=== PATIENT | female | born 1945 | race Caucasian/White ===

== ENCOUNTER 2020-01-27 07:22 | Day surgery (SDC) | payer MEDICARE, BC ==
[2020-01-27] MEDS ORDERED: fentaNYL 100 MCG/2 ML SDV ONE (08:04)
[2020-01-27] MEDS ORDERED: Propofol 200 MG/20 ML SDV ONE ×2 (08:04→08:43)
[2020-01-27] MEDS ORDERED: Midazolam 1 MG/ML 2 ML SDV ONE (08:04)
[2020-01-27] MEDS ORDERED: Sodium Chloride 0.9% 1,000 ML IV SCH (08:10)
--- NOTE | 2020-01-27 10:36 | OR ---
DATE OF PROCEDURE: 01/27/2020 SURGEON: Shan Gibson MD PROCEDURE: Colonoscopy. FINDINGS: 1. Very tortuous sigmoid colon. 2. Diverticulosis, moderate, mostly densely concentrated in the sigmoid colon without evidence of diverticulitis or bleeding. COMPLICATIONS: None. TIMBER MANAGEMENT ASSISTANT: None. ANESTHESIA: MAC. PREOPERATIVE DIAGNOSIS: Screening colonoscopy. POSTOPERATIVE DIAGNOSIS: Screening colonoscopy. RISKS: Risks, benefits, alternatives, and limitations including, but not limited to infection, bleeding, and perforation were explained to the patient, who wished to proceed. PROCEDURE IN DETAIL: The patient was placed in a left lateral decubitus position. Digital rectal exam was performed without abnormality. Scope was introduced and advanced atraumatically to the ileocecal valve. Scope was brought back through the ascending, transverse, descending colon, and retroflexed. Of note, the sigmoid colon was very tortuous, but at no point was the scope blindly advanced, nor was undue pressure applied. However, this would be a high risk for perforation in future colonoscopies. The diverticulosis would be described as moderate, mostly concentrated within the sigmoid colon itself without any abnormality. No abnormalities on retroflexion. The patient tolerated the procedure well. Shan Gibson MD /[id number]
== END 2020-01-27 10:00 | disposition home or self-care (01) ==
LOC: JP.SDS 07:22
PROVIDERS: ATTEND Surgery
DX: Z12.11 Encounter for screening for malignant neoplasm of colon (principal); K57.30 Diverticulosis of large intestine without perforation or abscess without bleeding; E78.5 Hyperlipidemia, unspecified
CPT/HCPCS: G0121; J2250; J2704; J3010; J7030

== ENCOUNTER 2021-01-22 05:59 | Inpatient (IN) | payer MEDICARE, BC ==
[2021-01-22] MEDS ORDERED: Lactated Ringers 1,000 ML IV SCH (06:30)
[2021-01-22] MEDS ORDERED: Povidone-Iodine 10% Soln 118.25 ML Bottle ONE (06:51)
[2021-01-22] MEDS ORDERED: Nozin Nasal Sanitizer NASBOTH ONE (07:00)
[2021-01-22] MEDS ORDERED: Propofol 200 MG/20 ML SDV ONE ×3 (07:18→09:07)
[2021-01-22] MEDS ORDERED: fentaNYL 100 MCG/2 ML SDV ONE ×2 (07:18→08:42)
[2021-01-22] MEDS ORDERED: Midazolam 1 MG/ML 2 ML SDV ONE ×2 (07:18→08:30)
[2021-01-22] MEDS ORDERED: Tranexamic Acid 1,000 MG in Sodium Chloride 0.9% 500 ML IV PRN (07:30)
[2021-01-22] MEDS ORDERED: cefOXitin 2 GM in Sodium Chloride 0.9% 50 ML IV ONE (07:30)
[2021-01-22] MEDS ORDERED: ceFAZolin 2 GM in Premix Bag 1 BAG IV ONE (07:30)
[2021-01-22] MEDS ORDERED: Tranexamic Acid 720 MG in Sodium Chloride 0.9% 50 ML IV ONE (07:45)
[2021-01-22] MEDS ORDERED: Dexamethasone 4 MG/ML SDV ONE (08:28)
[2021-01-22] MEDS ORDERED: Ondansetron 4 MG/2 ML SDV ONE (08:28)
[2021-01-22] MEDS ORDERED: Acetaminophen 325 MG Tab PO PRN (09:47)
[2021-01-22] MEDS ORDERED: Acetaminophen/HYDROcodone 325-5 MG Tab PO PRN (09:47)
[2021-01-22] MEDS ORDERED: Magnesium Hydroxide 400 MG/5 ML Susp 30 ML Cup PO PRN (09:47)
[2021-01-22] MEDS ORDERED: Fluticasone Propionate Nasal Spray 16 GM Bottle NASBOTH PRN (09:52)
[2021-01-22] MEDS ORDERED: Tranexamic Acid 720 MG in Sodium Chloride 0.9% 50 ML IV PRN (10:00)
[2021-01-22] MEDS ORDERED: Morphine 2 MG/ML SYRINGE IVPUSH PRN (10:14)
[2021-01-22] MEDS: Sodium Chloride 0.9% 1,000 ML IV SCH ×2 (10:53→21:12)
--- NOTE | 2021-01-22 11:13 | CR ---
Knee 1V or 2V Rt CLINICAL HISTORY: TKA FINDINGS: Patient has had recent total knee arthroplasty. Components appear well seated. There is some subcutaneous and in particular air Impression: Status post recent total knee arthroplasty
[2021-01-22] MEDS: Ketorolac 30 MG/ML SDV IVPUSH PRN (11:21)
[2021-01-22] MEDS: Acetaminophen/oxyCODONE 325-5 MG Tab PO PRN ×2 (14:19→19:47)
[2021-01-22] MEDS: ceFAZolin 1 GM in Premix Bag 1 BAG IV SCH ×2 (14:20→21:06)
[2021-01-22] MEDS: Docusate Sodium 100 MG Cap PO SCH (21:05)
[2021-01-22] MEDS: Propranolol 60 MG Cap.ER PO SCH (21:05)
[2021-01-22] MEDS: Nozin Nasal Sanitizer NASBOTH SCH (21:06)
[2021-01-23] MEDS: Acetaminophen/oxyCODONE 325-5 MG Tab PO PRN ×2 (00:11→07:42)
[2021-01-23] MEDS: Ketorolac 30 MG/ML SDV IVPUSH PRN (00:12)
[2021-01-23] MEDS: ceFAZolin 1 GM in Premix Bag 1 BAG IV SCH (05:23)
[2021-01-23] MEDS: Levothyroxine 100 MCG Tab PO SCH (07:25)
[2021-01-23] MEDS: Levothyroxine 25 MCG Tab PO SCH (07:26)
[2021-01-23] MEDS ORDERED: Acetaminophen/oxyCODONE 325-5 MG Tab PO PRN (08:21)
[2021-01-23] MEDS ORDERED: Acetaminophen/HYDROcodone 325-5 MG Tab PO PRN (08:21)
--- NOTE | 2021-01-23 08:37 | PCM.SURGPN ---
- General Info Date of Service: 01/23/21 Date of Surgery/Procedure: 01/22/21 POD#: 1 Post-Op Diagnosis: right knee total arthroplasty Admission Diagnosis/Problem: Knee joint operation Functional Status: Reports: Tolerating Diet. Denies: Pain Controlled - Review of Systems General: Reports: No Symptoms. Denies: Fever, Chills HEENT: Reports: No Symptoms Pulmonary: Reports: No Symptoms Cardiovascular: Reports: No Symptoms Gastrointestinal: Reports: No Symptoms Genitourinary: Reports: No Symptoms Musculoskeletal: Reports: Leg Pain (right ), Joint Pain (right knee ), Joint Swelling (right knee ) Skin: Reports: No Symptoms Neurological: Reports: No Symptoms Psychiatric: Reports: No Symptoms - Patient Data Vitals - Most Recent: Last Vital Signs Temp 98.3 F 01/23/21 07:00 Pulse 65 01/23/21 07:00 Resp 16 01/23/21 07:00 BP 129/82 01/23/21 07:00 Pulse Ox 97 01/23/21 07:00 Weight - Most Recent: 156 lb 11.2 oz I&O - Last 24 Hours: Intake & Output 01/22/21 01/23/21 01/23/21 22:59 06:59 14:59 Intake Total 1779 800 Output Total 600 600 150 Balance 1179 200 -150 Lab Results Last 24 Hrs: Laboratory Results - last 24 hr 01/23/21 Range/Units 04:25 WBC 7.5 (4.5-11.0) K/uL RBC 3.48 (3.30-5.50) M/uL Hgb 11.6 L (12.0-15.0) g/dL Hct 34.6 L (36.0-48.0) % MCV 99 H (80-98) fL MCH 33 H (27-31) pg MCHC 34 (32-36) % Plt Count 143 L (150-400) K/uL Med Orders - Current: Current Medications Acetaminophen (Acetaminophen 325 Mg Tab) 650 mg PO Q4H PRN PRN Reason: Pain/Fever Hydrocodone Bitart/Acetaminophen (Acetaminophen/Hydrocodone 325-5 Mg Tab) 1 - 2 tab PO Q4H PRN PRN Reason: Pain Bandage/Support Products (Nozin Nasal Cotton Stripper) 1 applic NASBOTH BID [place] Stop: 01/28/21 21:01 Last Admin: 01/22/21 21:06 Dose: 1 applic Documented by: Docusate Sodium (Docusate Sodium 100 Mg Cap) 100 mg PO BID [facility] Last Admin: 01/22/21 21:05 Dose: 100 mg Documented by: Enoxaparin Sodium (Enoxaparin 30 Mg/0.3 Ml Syringe) 30 mg SUBCUT DAILY [facility] Fluticasone Propionate (Fluticasone Propionate Nasal [place] 16 Gm Bottle) 0 gm NASBOTH DAILY PRN PRN Reason: Allergies Sodium Chloride (Normal Saline) 1,000 mls @ 75 mls/hr IV ASDIRECTED [facility] Last Admin: 01/22/21 21:12 Dose: 75 mls/hr Documented by: Ketorolac Tromethamine (Ketorolac 30 Mg/Ml Sdv) 15 mg IVPUSH Q8H PRN PRN Reason: Breakthrough Pain Stop: 01/27/21 09:48 Last Admin: 01/23/21 00:12 Dose: 15 mg Documented by: Levothyroxine Sodium (Levothyroxine 100 Mcg Tab) 100 mcg PO ACBREAKFAST [facility] Last Admin: 01/23/21 07:25 Dose: 100 mcg Documented by: Levothyroxine Sodium (Levothyroxine 25 Mcg Tab) 25 mcg PO ACBREAKFAST [facility] Last Admin: 01/23/21 07:26 Dose: 25 mcg Documented by: Magnesium Hydroxide (Magnesium Hydroxide 400 Mg/5 Ml Susp 30 Ml Cup) 30 ml PO BID PRN PRN Reason: Constipation Morphine Sulfate (Morphine 2 Mg/Ml Syringe) 1 mg IVPUSH Q1H PRN PRN Reason: Breakthrough Pain Ondansetron HCl (Ondansetron 4 Mg/2 Ml Sdv) 4 mg IVPUSH Q4H PRN PRN Reason: Nausea/Vomiting Oxycodone/Acetaminophen (Acetaminophen/Oxycodone 325-5 Mg Tab) 1 tab PO Q4H PRN PRN Reason: Pain (severe 7-10) Propranolol HCl (Propranolol 60 Mg Cap.Er) 60 mg PO BEDTIME [facility] Last Admin: 01/22/21 21:05 Dose: 60 mg Documented by: Discontinued Medications Hydrocodone Bitart/Acetaminophen (Acetaminophen/Hydrocodone 325-5 Mg Tab) 1 tab PO Q4H PRN PRN Reason: Pain (mild 1-3) Bandage/Support Products (Nozin Nasal Cotton Stripper) 1 applic NASBOTH ONETIME ONE Stop: 01/22/21 07:01 Last Admin: 01/22/21 07:39 Dose: 3 swab Documented by: Dexamethasone (Dexamethasone 4 Mg/Ml Sdv) Confirm Administered Dose 4 mg .ROUTE .STK-MED ONE Stop: 01/22/21 08:29 Fentanyl (Fentanyl 100 Mcg/2 Ml Sdv) Confirm Administered Dose 100 mcg .ROUTE .STK-MED ONE Stop: 01/22/21 07:19 Fentanyl (Fentanyl 100 Mcg/2 Ml Sdv) Confirm Administered Dose 100 mcg .ROUTE .STK-MED ONE Stop: 01/22/21 08:43 Lactated Ringer's (Ringers, Lactated) 1,000 mls @ 75 mls/hr IV ASDIRECTED [facility] Last Admin: 01/22/21 07:40 Dose: 75 mls/hr Documented by: Cefazolin Sodium/Dextrose 2 gm (/ Premix) 50 mls @ 100 mls/hr IV ONETIME ONE Stop: 01/22/21 07:59 Last Admin: 01/22/21 07:41 Dose: 100 mls/hr Documented by: Tranexamic Acid 720 mg/ Sodium (Chloride) 57.2 mls @ 228.8 mls/hr IV ONETIME ONE Stop: 01/22/21 07:59 Last Admin: 01/22/21 08:20 Dose: 228.8 mls/hr Documented by: Tranexamic Acid 720 mg/ Sodium (Chloride) 57.2 mls @ 228.8 mls/hr IV ONETIME PRN PRN Reason: 2ND DOSE IF REQUESTED BY MD Stop: 01/22/21 14:00 Cefazolin Sodium/Dextrose 1 gm (/ Premix) 50 mls @ 100 mls/hr IV Q8H [facility] Stop: 01/23/21 06:29 Last Admin: 01/23/21 05:23 Dose: 100 mls/hr Documented by: Midazolam HCl (Midazolam 1 Mg/Ml 2 Ml Sdv) Confirm Administered Dose 2 mg .ROUTE .STK-MED ONE Stop: 01/22/21 07:19 Midazolam HCl (Midazolam 1 Mg/Ml 2 Ml Sdv) Confirm Administered Dose 2 mg .ROUTE .STK-MED ONE Stop: 01/22/21 08:31 Ondansetron HCl (Ondansetron 4 Mg/2 Ml Sdv) Confirm Administered Dose 4 mg .ROUTE .STK-MED ONE Stop: 01/22/21 08:29 Oxycodone/Acetaminophen (Acetaminophen/Oxycodone 325-5 Mg Tab) 1 - 2 tab PO Q4H PRN PRN Reason: Pain Last Admin: 01/23/21 07:42 Dose: 1 tab Documented by: Povidone Iodine (Povidone-Iodine 10% Soln 118.25 Ml Bottle) Confirm Administered Dose 1 ml .ROUTE .STK-MED ONE Stop: 01/22/21 06:52 Last Admin: 01/22/21 08:40 Dose: 30 ml Documented by: Propofol (Propofol 200 Mg/20 Ml Sdv) Confirm Administered Dose 200 mg .ROUTE .STK-MED ONE Stop: 01/22/21 07:19 Propofol (Propofol 200 Mg/20 Ml Sdv) Confirm Administered Dose 200 mg .ROUTE .STK-MED ONE Stop: 01/22/21 08:28 Propofol (Propofol 200 Mg/20 Ml Sdv) Confirm Administered Dose 200 mg .ROUTE .STK-MED ONE Stop: 01/22/21 09:08 Propranolol HCl (Propranolol 60 Mg Cap.Er) 60 mg PO DAILY [place] - Exam Wound/Incisions: Healing Well, Dressing Dry and Intact, No Drainage Quality Assessment: Urine Catheter, DVT Prophylaxis General: Alert, Oriented, Cooperative Extremities: Pedal Edema (mild, right ), Joint Swelling (R knee ), Leg Pain (right ), Limited Range of Motion (due to postoperative swelling and pain in R knee ). No: Ivanna's Sign Skin: Dry, Intact, Other (unable to accurately assess temperature, as cool pack on R knee ) Neurological: No New Focal Deficit Psy/Mental Status: Alert, Normal Affect, Normal Mood Sepsis Event Note - Evaluation Sepsis Screening Result: No Definite Risk - Focused Exam Vital Signs: Vital Signs Temp Pulse Resp BP Pulse Ox 01/23/21 07:00 98.3 F 65 16 129/82 97 01/22/21 22:21 98.3 F 67 16 140/76 95 - Problem List & Annotations (1) Status post total right knee replacement SNOMED Code(s): 2974314639086, 2598732610972 Code(s): Z96.651 - PRESENCE OF RIGHT ARTIFICIAL KNEE JOINT Status: Acute Current Visit: Yes (2) Postoperative anemia due to acute blood loss SNOMED Code(s): 90188982607748217 Code(s): D62 - ACUTE POSTHEMORRHAGIC ANEMIA Status: Acute Current Visit: Yes - Problem List Review Problem List Initiated/Reviewed/Updated: Yes - My Orders Last 24 Hours: Active Orders 24 hr Category Date Time Status Patient Status [ADT] Routine ADT 01/22/21 09:47 Active Ambulate [RC] QID Care 01/22/21 09:47 Active Antiembolic Devices [RC] .Routine Care 01/22/21 09:47 Active Head of Bed Elevation [RC] ASDIRECTED Care 01/22/21 09:47 Active Intake and Output [RC] QSHIFT Care 01/22/21 09:47 Active May Shower [RC] ASDIRECTED Care 01/22/21 09:47 Active Neurovascular Check [RC] Q4H Care 01/22/21 09:47 Active Oxygen Therapy [RC] PRN Care 01/22/21 09:47 Active Pneumonia Education [RC] UPON Care 01/22/21 09:47 Active RT Incentive Spirometry [RC] Q1HWA Care 01/22/21 09:47 Active Up to Chair [RC] QID Care 01/22/21 09:47 Active Up to Chair [RC] QID Care 01/22/21 09:47 Active VTE/DVT Education [RC] Click to Edit Care 01/22/21 09:47 Active Vital Signs [RC] PER UNIT ROUTINE Care 01/22/21 09:47 Active Wound Care [RC] Q12H Care 01/22/21 09:47 Active Consult to Case Management/Platform Operations Director [CONS] Cons 01/22/21 09:47 Active Routine OT Evaluation and Treatment [CONS] Routine Cons 01/22/21 09:47 Active PT Evaluation and Treatment [CONS] Routine Cons 01/22/21 09:47 Active Regular Diet [DIET] Diet 01/22/21 Lunch Active Acetaminophen [TylenoL] Med 01/22/21 09:47 Active 650 mg PO Q4H PRN Acetaminophen/HYDROcodone [[place] 325-5 MG] Med 01/23/21 08:21 Ordered 1 - 2 tab PO Q4H PRN Acetaminophen/oxyCODONE [Percocet 325-5 MG] Med 01/23/21 08:21 Ordered 1 tab PO Q4H PRN Docusate Sodium [Colace] Med 01/22/21 21:00 Active 100 mg PO BID Enoxaparin [Lovenox] Med 01/23/21 09:00 Active 30 mg SUBCUT DAILY Fluticasone Propionate [Flonase] Med 01/22/21 09:52 Active 0 gm NASBOTH DAILY PRN Ketorolac [Toradol] Med 01/22/21 09:47 Active 15 mg IVPUSH Q8H PRN Levothyroxine Med 01/23/21 07:30 Active 25 mcg PO ACBREAKFAST Levothyroxine [Synthroid] Med 01/23/21 07:30 Active 100 mcg PO ACBREAKFAST Magnesium Hydroxide [Milk of Magnesia] Med 01/22/21 09:47 Active 30 ml PO BID PRN Morphine Med 01/22/21 10:14 Active 1 mg IVPUSH Q1H PRN Nozin [ Nasal Cotton Stripper] Med 01/22/21 21:00 Active 1 applic NASBOTH BID Ondansetron [Zofran] Med 01/22/21 09:47 Active 4 mg IVPUSH Q4H PRN Propranolol [Inderal LA] Med 01/22/21 21:00 Active 60 mg PO BEDTIME Sodium Chloride 0.9% [Normal Saline] 1,000 ml Med 01/22/21 10:00 Active IV ASDIRECTED Antiembolic Hose [OM.PC] Routine Oth 01/22/21 09:47 Ordered DVT/VTE Prophylaxis Reflex [OM.PC] Routine Oth 01/22/21 09:47 Ordered Ice Therapy [OM.PC] Per Unit Routine Oth 01/22/21 09:47 Ordered Medication Continuation Instructions [OM.PC] Per Unit Oth 01/22/21 09:47 Ordered Routine Oral Care [OM.PC] Routine Oth 01/22/21 09:47 Ordered Sequential Compression Device [OM.PC] Routine Oth 01/22/21 09:47 Ordered Weight bearing status [OM.PC] Routine Oth 01/22/21 09:53 Ordered Resuscitation Status Routine Resus Stat 01/22/21 09:47 Ordered Medication Orders Acetaminophen (Acetaminophen 325 Mg Tab) 650 mg PO Q4H PRN PRN Reason: Pain/Fever Hydrocodone Bitart/Acetaminophen (Acetaminophen/Hydrocodone 325-5 Mg Tab) 1 - 2 tab PO Q4H PRN PRN Reason: Pain Bandage/Support Products (Nozin Nasal Cotton Stripper) 1 applic NASBOTH BID [facility] Stop: 01/28/21 21:01 Last Admin: 01/22/21 21:06 Dose: 1 applic Documented by: NICK Docusate Sodium (Docusate Sodium 100 Mg Cap) 100 mg PO BID [facility] Last Admin: 01/22/21 21:05 Dose: 100 mg Documented by: NICK Enoxaparin Sodium (Enoxaparin 30 Mg/0.3 Ml Syringe) 30 mg SUBCUT DAILY [facility] Fluticasone Propionate (Fluticasone Propionate Nasal [place] 16 Gm Bottle) 0 gm NASBOTH DAILY PRN PRN Reason: Allergies Sodium Chloride (Normal Saline) 1,000 mls @ 75 mls/hr IV ASDIRECTED [facility] Last Admin: 01/22/21 21:12 Dose: 75 mls/hr Documented by: Infusion: 01/22/21 20:01 Dose: 75 mls/hr Documented by: Infusion: 01/22/21 17:11 Dose: 75 mls/hr Documented by: Admin: 01/22/21 10:53 Dose: 125 mls/hr Documented by: LAST Ketorolac Tromethamine (Ketorolac 30 Mg/Ml Sdv) 15 mg IVPUSH Q8H PRN PRN Reason: Breakthrough Pain Stop: 01/27/21 09:48 Last Admin: 01/23/21 00:12 Dose: 15 mg Documented by: Admin: 01/22/21 11:21 Dose: 15 mg Documented by: LAST Levothyroxine Sodium (Levothyroxine 100 Mcg Tab) 100 mcg PO ACBREAKFAST [facility] Last Admin: 01/23/21 07:25 Dose: 100 mcg Documented by: BERT Levothyroxine Sodium (Levothyroxine 25 Mcg Tab) 25 mcg PO ACBREAKFAST [facility] Last Admin: 01/23/21 07:26 Dose: 25 mcg Documented by: BERT Magnesium Hydroxide (Magnesium Hydroxide 400 Mg/5 Ml Susp 30 Ml Cup) 30 ml PO BID PRN PRN Reason: Constipation Morphine Sulfate (Morphine 2 Mg/Ml Syringe) 1 mg IVPUSH Q1H PRN PRN Reason: Breakthrough Pain Ondansetron HCl (Ondansetron 4 Mg/2 Ml Sdv) 4 mg IVPUSH Q4H PRN PRN Reason: Nausea/Vomiting Oxycodone/Acetaminophen (Acetaminophen/Oxycodone 325-5 Mg Tab) 1 tab PO Q4H PRN PRN Reason: Pain (severe 7-10) Propranolol HCl (Propranolol 60 Mg Cap.Er) 60 mg PO BEDTIME [facility] Last Admin: 01/22/21 21:05 Dose: 60 mg Documented by: NICK - Assessment Assessment (Free Text/Narrative):: Patient is a pleasant 75-year-old female, status post right total knee arthroplasty, postop day #1. Patient tolerated surgery well with no major complications. Remains hemodynamically stable, vitals within acceptable limits. Postoperative day #1 hemoglobin at 11.6. Asymptomatic with this; denied lightheadedness, dizziness, dyspnea, nor vision changes. Patient endorsed pain in right knee overnight; has had nausea and lightheadedness that coincides with administration of Percocet. Has been taking Percocet with food. History of nausea and emesis with morphine, so patient has declined morphine for pain. Has been tolerating Toradol well without nausea or lightheadedness and getting adequate pain relief with this. Has been tolerating regular diet well without emesis. Transferred from bed to chair last night without any dizziness or lightheadedness. Endorsed discomfort in RLE with this transfer. Has not ambulated any further than this. Dressing on right lower extremity dry and intact. Unable to accurately assess temperature as cool pack in place on right knee. Edema of R knee and mild pedal edema present. Tibialis posterior appreciated, 2+. Sensation intact to right lower extremity. Dorsiflexion 4/5. Plantar flexion 4/5. Patient requires inpatient status at this time to progress ambulation abilities with physical therapy services. Plan * Patient to participate in physical and occupational therapy daily while in the hospital * May discontinue Moralez, pending ambulation abilities progress with physical therapy this morning * Adjustment made to pain regimen; taper added to [place] dose (see order for details). Will try this instead of Percocet to see if nausea improves. Should take all pain medications with food. Zofran available for nausea as needed * Postoperative anemia stable at this time. Continue to monitor vitals every 4 hours. If patient becomes symptomatic, can recheck CBC * Continue with 30 mg Lovenox subcutaneous daily for chemical DVT/VTE prophylaxis. Bilateral SCDs for mechanical prophylaxis * IV Saline locked this morning, as vitals within normal limits and patient having good oral intake & urine output * Dressing change to be performed on POD#2 by orthopedic provider * Anticipate discharge to home when patient is medically stable and ambulation abilities progress. Patient would like home health referral at time of discharge
[2021-01-23] MEDS ORDERED: Propranolol 60 MG Cap.ER PO SCH (09:00)
[2021-01-23] MEDS: Ondansetron 4 MG/2 ML SDV IVPUSH PRN ×3 (09:09→17:21)
[2021-01-23] MEDS: Sodium Chloride 0.9% 1,000 ML IV SCH (09:13)
[2021-01-23] MEDS: Nozin Nasal Sanitizer NASBOTH SCH ×2 (09:14→20:24)
[2021-01-23] MEDS: Docusate Sodium 100 MG Cap PO SCH ×2 (09:15→20:24)
[2021-01-23] MEDS: Enoxaparin 30 MG/0.3 ML Syringe SUBCUT SCH (09:15)
[2021-01-23] MEDS ORDERED: hydrOXYzine HCL 100 MG/2 ML SDV IM PRN (12:35)
[2021-01-23] MEDS: Ketorolac 30 MG/ML SDV IVPUSH SCH (17:10)
[2021-01-23] MEDS: Propranolol 60 MG Cap.ER PO SCH (20:25)
[2021-01-24] MEDS: Ketorolac 30 MG/ML SDV IVPUSH SCH ×3 (01:24→17:09)
[2021-01-24] MEDS: Levothyroxine 25 MCG Tab PO SCH (07:22)
[2021-01-24] MEDS: Levothyroxine 100 MCG Tab PO SCH (07:22)
[2021-01-24] MEDS: Ondansetron 4 MG/2 ML SDV IVPUSH PRN (07:28)
[2021-01-24] MEDS: Docusate Sodium 100 MG Cap PO SCH ×2 (09:52→20:41)
[2021-01-24] MEDS: Enoxaparin 30 MG/0.3 ML Syringe SUBCUT SCH (09:53)
[2021-01-24] MEDS: Nozin Nasal Sanitizer NASBOTH SCH ×2 (09:53→20:41)
--- NOTE | 2021-01-24 15:06 | PCM.SURGPN ---
- General Info Date of Service: 01/24/21 Date of Surgery/Procedure: 01/22/21 POD#: 2 Post-Op Diagnosis: right knee osteoarthritis Admission Diagnosis/Problem: Knee joint operation Functional Status: Reports: Ambulating (with FWW, SBA ), Urinating. Denies: Tolerating Diet - Review of Systems General: Reports: Fatigue, Other. Denies: Fever, Chills, Appetite HEENT: Denies: Visual Changes Pulmonary: Reports: No Symptoms Cardiovascular: Reports: No Symptoms Gastrointestinal: Reports: Decreased Appetite, Nausea, Vomiting Genitourinary: Reports: No Symptoms Musculoskeletal: Reports: Back Pain (chronic ), Leg Pain (right ), Joint Pain (right knee ), Joint Swelling (right knee ) Skin: Reports: Bruising Neurological: Reports: No Symptoms Psychiatric: Reports: No Symptoms - Patient Data Vitals - Most Recent: Last Vital Signs Temp 97.5 F 01/24/21 14:33 Pulse 76 01/24/21 14:33 Resp 16 01/24/21 14:33 BP 153/72 H 01/24/21 14:33 Pulse Ox 95 01/24/21 14:33 Weight - Most Recent: 156 lb 11.203 oz I&O - Last 24 Hours: Intake & Output 01/23/21 01/24/21 01/24/21 22:59 06:59 14:59 Intake Total 2504 1455 400 Output Total 500 2050 800 Balance 2004 -595 -400 Med Orders - Current: Current Medications Acetaminophen (Acetaminophen 325 Mg Tab) 650 mg PO Q4H PRN PRN Reason: Pain/Fever Hydrocodone Bitart/Acetaminophen (Acetaminophen/Hydrocodone 325-5 Mg Tab) 1 - 2 tab PO Q4H PRN PRN Reason: Pain Last Admin: 01/23/21 12:52 Dose: 1 tab Documented by: Bandage/Support Products (Nozin Nasal [place]) 1 applic NASBOTH BID [facility] Stop: 01/28/21 21:01 Last Admin: 01/24/21 09:53 Dose: 1 applic Documented by: Docusate Sodium (Docusate Sodium 100 Mg Cap) 100 mg PO BID [facility] Last Admin: 01/24/21 09:52 Dose: 100 mg Documented by: Enoxaparin Sodium (Enoxaparin 30 Mg/0.3 Ml Syringe) 30 mg SUBCUT DAILY [facility] Last Admin: 01/24/21 09:53 Dose: 30 mg Documented by: Fluticasone Propionate (Fluticasone Propionate Nasal [place] 16 Gm Bottle) 0 gm NASBOTH DAILY PRN PRN Reason: Allergies Hydroxyzine HCl (Hydroxyzine Hcl 100 Mg/2 Ml Sdv) 100 mg IM Q6H PRN PRN Reason: Breakthrough Pain Sodium Chloride (Normal Saline) 1,000 mls @ 75 mls/hr IV ASDIRECTED [facility] Last Admin: 01/23/21 09:13 Dose: 75 mls/hr Documented by: Ketorolac Tromethamine (Ketorolac 30 Mg/Ml Sdv) 15 mg IVPUSH Q8H [facility] Stop: 01/24/21 17:01 Last Admin: 01/24/21 09:53 Dose: 15 mg Documented by: Levothyroxine Sodium (Levothyroxine 100 Mcg Tab) 100 mcg PO ACBREAKFAST [facility] Last Admin: 01/24/21 07:22 Dose: 100 mcg Documented by: Levothyroxine Sodium (Levothyroxine 25 Mcg Tab) 25 mcg PO ACBREAKFAST [facility] Last Admin: 01/24/21 07:22 Dose: 25 mcg Documented by: Magnesium Hydroxide (Magnesium Hydroxide 400 Mg/5 Ml Susp 30 Ml Cup) 30 ml PO BID PRN PRN Reason: Constipation Ondansetron HCl (Ondansetron 4 Mg/2 Ml Sdv) 4 mg IVPUSH Q4H PRN PRN Reason: Nausea/Vomiting Last Admin: 01/24/21 07:28 Dose: 4 mg Documented by: Oxycodone/Acetaminophen (Acetaminophen/Oxycodone 325-5 Mg Tab) 1 tab PO Q4H PRN PRN Reason: Pain (severe 7-10) Propranolol HCl (Propranolol 60 Mg Cap.Er) 60 mg PO BEDTIME [facility] Last Admin: 01/23/21 20:25 Dose: 60 mg Documented by: Discontinued Medications Hydrocodone Bitart/Acetaminophen (Acetaminophen/Hydrocodone 325-5 Mg Tab) 1 tab PO Q4H PRN PRN Reason: Pain (mild 1-3) Bandage/Support Products (Nozin Nasal [place]) 1 applic NASBOTH ONETIME ONE Stop: 01/22/21 07:01 Last Admin: 01/22/21 07:39 Dose: 3 swab Documented by: Dexamethasone (Dexamethasone 4 Mg/Ml Sdv) Confirm Administered Dose 4 mg .ROUTE .STK-MED ONE Stop: 01/22/21 08:29 Fentanyl (Fentanyl 100 Mcg/2 Ml Sdv) Confirm Administered Dose 100 mcg .ROUTE .STK-MED ONE Stop: 01/22/21 07:19 Fentanyl (Fentanyl 100 Mcg/2 Ml Sdv) Confirm Administered Dose 100 mcg .ROUTE .STK-MED ONE Stop: 01/22/21 08:43 Lactated Ringer's (Ringers, Lactated) 1,000 mls @ 75 mls/hr IV ASDIRECTED [facility] Last Admin: 01/22/21 07:40 Dose: 75 mls/hr Documented by: Cefazolin Sodium/Dextrose 2 gm (/ Premix) 50 mls @ 100 mls/hr IV ONETIME ONE Stop: 01/22/21 07:59 Last Admin: 01/22/21 07:41 Dose: 100 mls/hr Documented by: Tranexamic Acid 720 mg/ Sodium (Chloride) 57.2 mls @ 228.8 mls/hr IV ONETIME ONE Stop: 01/22/21 07:59 Last Admin: 01/22/21 08:20 Dose: 228.8 mls/hr Documented by: Tranexamic Acid 720 mg/ Sodium (Chloride) 57.2 mls @ 228.8 mls/hr IV ONETIME PRN PRN Reason: 2ND DOSE IF REQUESTED BY MD Stop: 01/22/21 14:00 Cefazolin Sodium/Dextrose 1 gm (/ Premix) 50 mls @ 100 mls/hr IV Q8H [facility] Stop: 01/23/21 06:29 Last Admin: 01/23/21 05:23 Dose: 100 mls/hr Documented by: Ketorolac Tromethamine (Ketorolac 30 Mg/Ml Sdv) 15 mg IVPUSH Q8H PRN PRN Reason: Breakthrough Pain Stop: 01/27/21 09:48 Last Admin: 01/23/21 00:12 Dose: 15 mg Documented by: Midazolam HCl (Midazolam 1 Mg/Ml 2 Ml Sdv) Confirm Administered Dose 2 mg .ROUTE .STK-MED ONE Stop: 01/22/21 07:19 Midazolam HCl (Midazolam 1 Mg/Ml 2 Ml Sdv) Confirm Administered Dose 2 mg .ROUTE .STK-MED ONE Stop: 01/22/21 08:31 Ondansetron HCl (Ondansetron 4 Mg/2 Ml Sdv) Confirm Administered Dose 4 mg .ROUTE .STK-MED ONE Stop: 01/22/21 08:29 Oxycodone/Acetaminophen (Acetaminophen/Oxycodone 325-5 Mg Tab) 1 - 2 tab PO Q4H PRN PRN Reason: Pain Last Admin: 01/23/21 07:42 Dose: 1 tab Documented by: Povidone Iodine (Povidone-Iodine 10% Soln 118.25 Ml Bottle) Confirm Administered Dose 1 ml .ROUTE .STK-MED ONE Stop: 01/22/21 06:52 Last Admin: 01/22/21 08:40 Dose: 30 ml Documented by: Propofol (Propofol 200 Mg/20 Ml Sdv) Confirm Administered Dose 200 mg .ROUTE .STK-MED ONE Stop: 01/22/21 07:19 Propofol (Propofol 200 Mg/20 Ml Sdv) Confirm Administered Dose 200 mg .ROUTE .STK-MED ONE Stop: 01/22/21 08:28 Propofol (Propofol 200 Mg/20 Ml Sdv) Confirm Administered Dose 200 mg .ROUTE .STK-MED ONE Stop: 01/22/21 09:08 Propranolol HCl (Propranolol 60 Mg Cap.Er) 60 mg PO DAILY [place] - Exam Wound/Incisions: Healing Well, Dressing Dry and Intact, No Drainage Quality Assessment: DVT Prophylaxis General: Alert, Oriented, Cooperative, No Acute Distress Extremities: Pedal Edema, Joint Swelling (right knee ), Leg Pain (right ), Limited Range of Motion (due to postoperative swelling and pain, knee flexion to 84 ). No: Ivanna's Sign Skin: Dry, Intact, Ecchymosis Neurological: No New Focal Deficit Psy/Mental Status: Alert, Normal Affect, Normal Mood Sepsis Event Note - Evaluation Sepsis Screening Result: No Definite Risk - Focused Exam Vital Signs: Vital Signs Temp Pulse Resp BP Pulse Ox 01/24/21 14:33 97.5 F 76 16 153/72 H 95 01/24/21 11:00 97.5 F 56 L 16 139/76 97 01/24/21 06:52 98.3 F 68 16 147/67 H 91 L - Problem List & Annotations (1) Status post total right knee replacement SNOMED Code(s): 5796979259576, 8202729379024 Code(s): Z96.651 - PRESENCE OF RIGHT ARTIFICIAL KNEE JOINT Status: Acute Current Visit: Yes (2) Postoperative anemia due to acute blood loss SNOMED Code(s): 40074904966589256 Code(s): D62 - ACUTE POSTHEMORRHAGIC ANEMIA Status: Acute Current Visit: Yes (3) Nausea and vomiting after administration of anesthetic agent SNOMED Code(s): 356073782 Code(s): T88.59XA - OTHER COMPLICATIONS OF ANESTHESIA, INITIAL ENCOUNTER; R11.2 - NAUSEA WITH VOMITING, UNSPECIFIED Status: Acute Current Visit: Yes Annotation/Comment:: with Percocet and [place] - Problem List Review Problem List Initiated/Reviewed/Updated: Yes - My Orders Last 24 Hours: Active Orders 24 hr Category Date Time Status Communication Order [RC] ASDIRECTED Care 01/24/21 05:00 Active Ketorolac [Toradol] Med 01/23/21 17:00 Active 15 mg IVPUSH Q8H Medication Orders Acetaminophen (Acetaminophen 325 Mg Tab) 650 mg PO Q4H PRN PRN Reason: Pain/Fever Hydrocodone Bitart/Acetaminophen (Acetaminophen/Hydrocodone 325-5 Mg Tab) 1 - 2 tab PO Q4H PRN PRN Reason: Pain Last Admin: 01/23/21 12:52 Dose: 1 tab Documented by: BERT Bandage/Support Products (Nozin Nasal [place]) 1 applic NASBOTH BID [facility] Stop: 01/28/21 21:01 Last Admin: 01/24/21 09:53 Dose: 1 applic Documented by: Admin: 01/23/21 20:24 Dose: 1 applic Documented by: Admin: 01/23/21 09:14 Dose: 1 applic Documented by: Admin: 01/22/21 21:06 Dose: 1 applic Documented by: NICK Docusate Sodium (Docusate Sodium 100 Mg Cap) 100 mg PO BID [facility] Last Admin: 01/24/21 09:52 Dose: 100 mg Documented by: Admin: 01/23/21 20:24 Dose: 100 mg Documented by: Admin: 01/23/21 09:15 Dose: 100 mg Documented by: Admin: 01/22/21 21:05 Dose: 100 mg Documented by: NICK Enoxaparin Sodium (Enoxaparin 30 Mg/0.3 Ml Syringe) 30 mg SUBCUT DAILY [facility] Last Admin: 01/24/21 09:53 Dose: 30 mg Documented by: Admin: 01/23/21 09:15 Dose: 30 mg Documented by: BERT Fluticasone Propionate (Fluticasone Propionate Nasal [place] 16 Gm Bottle) 0 gm NASBOTH DAILY PRN PRN Reason: Allergies Hydroxyzine HCl (Hydroxyzine Hcl 100 Mg/2 Ml Sdv) 100 mg IM Q6H PRN PRN Reason: Breakthrough Pain Sodium Chloride (Normal Saline) 1,000 mls @ 75 mls/hr IV ASDIRECTED [facility] Last Admin: 01/23/21 09:13 Dose: 75 mls/hr Documented by: Infusion: 01/23/21 09:13 Dose: 75 mls/hr Documented by: Admin: 01/22/21 21:12 Dose: 75 mls/hr Documented by: Infusion: 01/22/21 20:01 Dose: 75 mls/hr Documented by: Infusion: 01/22/21 17:11 Dose: 75 mls/hr Documented by: Admin: 01/22/21 10:53 Dose: 125 mls/hr Documented by: LAST Ketorolac Tromethamine (Ketorolac 30 Mg/Ml Sdv) 15 mg IVPUSH Q8H [facility] Stop: 01/24/21 17:01 Last Admin: 01/24/21 09:53 Dose: 15 mg Documented by: Admin: 01/24/21 01:24 Dose: 15 mg Documented by: Admin: 01/23/21 17:10 Dose: 15 mg Documented by: BERT Levothyroxine Sodium (Levothyroxine 100 Mcg Tab) 100 mcg PO ACBREAKFAST [facility] Last Admin: 01/24/21 07:22 Dose: 100 mcg Documented by: Admin: 01/23/21 07:25 Dose: 100 mcg Documented by: BERT Levothyroxine Sodium (Levothyroxine 25 Mcg Tab) 25 mcg PO ACBREAKFAST [facility] Last Admin: 01/24/21 07:22 Dose: 25 mcg Documented by: Admin: 01/23/21 07:26 Dose: 25 mcg Documented by: BERT Magnesium Hydroxide (Magnesium Hydroxide 400 Mg/5 Ml Susp 30 Ml Cup) 30 ml PO BID PRN PRN Reason: Constipation Ondansetron HCl (Ondansetron 4 Mg/2 Ml Sdv) 4 mg IVPUSH Q4H PRN PRN Reason: Nausea/Vomiting Last Admin: 01/24/21 07:28 Dose: 4 mg Documented by: Admin: 01/23/21 17:21 Dose: 4 mg Documented by: Admin: 01/23/21 12:52 Dose: 4 mg Documented by: Admin: 01/23/21 09:09 Dose: 4 mg Documented by: BERT Oxycodone/Acetaminophen (Acetaminophen/Oxycodone 325-5 Mg Tab) 1 tab PO Q4H PRN PRN Reason: Pain (severe 7-10) Propranolol HCl (Propranolol 60 Mg Cap.Er) 60 mg PO BEDTIME [facility] Last Admin: 01/23/21 20:25 Dose: 60 mg Documented by: Admin: 01/22/21 21:05 Dose: 60 mg Documented by: NICK - Assessment Assessment (Free Text/Narrative):: Patient is a pleasant 75-year-old female, status post right total knee arthroplasty, postop day #2. No acute events overnight. Patient remains hemodynamically stable; vitals within acceptable limits. Adjustments to pain regimen made last night, scheduled Toradol ordered. Patient seems to tolerate this better without emesis in comparison to previous pain medications. Patient does still endorse nausea and decreased appetite; has been able to tolerate Jello and some soup broth without emesis. Denied fever, chills, dyspnea, nor vision changes. Pain seems to be relatively well controlled with Toradol at this time. Hydroxyzine is available as well for pain/nausea; patient has not tried this medication yet, so unsure how effective this medication will be. Patient has worked with physical therapy daily while in the hospital; ambulation abilities progressed to 162 feet with four-wheel walker and standby assist, flexion to 78 degrees of right knee, and safely completed 2 stairs today. Patient does have 8 stairs to complete to get into her home upon discharge. Patient worked with occupational therapy today; was introduced to adaptive equipment to help with ADLs. Demonstrated competency using right leg junior systems administrator for assistance to get right lower extremity into and out of bed. Completed ADLs with minimal assistance. Due to the severe nausea with movement yesterday [place] catheter was left in overnight and removed this morning on postop day #2. IV saline locked on postop day #2 as patient's oral intake increased. Dressing change performed by orthopedic providers on postop day #2. Patient continues to require inpatient status at this time for monitoring of postoperative nausea and inadequate pain control with oral medications. Additionally, requires physical therapy services to progress ambulation and stair abilities prior to discharge. Exam: Incision approximated, Steri-Strips with dried drainage intact above incision. No surrounding erythema of incision. No active drainage. Postoperative edema of right knee and pedal edema present. R calf soft and supple. Tibialis posterior appreciated, 2+. Sensation to right lower extremity intact. Plan: * Patient to participate in physical and occupational therapy daily while in hospital * Pain control: Continue with scheduled Toradol. May utilize hydroxyzine for breakthrough pain and nausea * DVT prophylaxis: Continue with 30 mg subcutaneous Lovenox daily for chemical prophylaxis and bilateral lower extremity SCDs for mechanical prophylaxis * Anticipate discharge to home when patient is medically stable, nausea under control, pain is controlled with PO medications. Referral has been made for home health services upon discharge.
[2021-01-24] MEDS: Propranolol 60 MG Cap.ER PO SCH (20:42)
[2021-01-25] MEDS: Levothyroxine 100 MCG Tab PO SCH (07:21)
[2021-01-25] MEDS: Levothyroxine 25 MCG Tab PO SCH (07:21)
[2021-01-25] MEDS: Nozin Nasal Sanitizer NASBOTH SCH (08:18)
[2021-01-25] MEDS: Docusate Sodium 100 MG Cap PO SCH (08:18)
[2021-01-25] MEDS: Enoxaparin 30 MG/0.3 ML Syringe SUBCUT SCH (08:18)
--- NOTE | 2021-01-25 12:16 | PCM.DCSUM1 ---
Discharge Summary - Hospital Course HPI Initial Comments: Patient is a 75-year-old female, history of right knee pain. Knee pain was limiting functional mobility and quality of life. Symptoms were refractory to conservative management and patient elected to undergo right total knee arthroplasty. Surgery went well with no complications. Postoperative period was complicated by nausea with analgesic measures. Hospital stay prolonged to allow for additional physical therapy services and for adequate pain control with resolution of nausea. Diagnosis: Stroke: No Modified Person Scale: No Symptoms at All Modified Person Scale Score: 0 - Discharge Data Discharge Date: 01/25/21 Discharge Disposition: Home, W Home Health Agency 06 Condition: Good - Referral to Home Health Date of Face to Face Encounter: 01/25/21 Reason for Homebound Status: motivated to go home, fairly independent with ADLs. Primary Care Physician: Nasra Swanson MD Skilled Need: post-operative vital monitoring, physical therapy - Discharge Diagnosis/Problem(s) (1) Status post total right knee replacement SNOMED Code(s): 2368367965028, [id number] ICD Code: Z96.651 - PRESENCE OF RIGHT ARTIFICIAL KNEE JOINT Status: Acute Current Visit: Yes (2) Postoperative anemia due to acute blood loss SNOMED Code(s): 82434541603060568 ICD Code: D62 - ACUTE POSTHEMORRHAGIC ANEMIA Status: Acute Current Visit: Yes (3) Nausea and vomiting after administration of anesthetic agent SNOMED Code(s): 500975595 ICD Code: T88.59XA - OTHER COMPLICATIONS OF ANESTHESIA, INITIAL ENCOUNTER; R11.2 - NAUSEA WITH VOMITING, UNSPECIFIED Status: Acute Current Visit: Yes Problem Details: with Percocet and Chavies - Patient Summary/Data Operative Procedure(s) Performed: right total knee arthroplasty Consults: Consultations 01/22/21 09:47 Consult to Case Management/Vertical Lathe Operator [CONS] Routine Comment: Physician Instructions: Service(s) to be Consulted: Case Management Reason for Consult: Plan for Discharge Special Instructions: s/p RTKA Anticipate dc to home with home health when medically stable OT Evaluation and Treatment [CONS] Routine Please Evaluate and Treat. OT Reason for Consult: adls Special Instructions: R TKA This query below is only for informational purposes and is not editable. PT Evaluation and Treatment [CONS] Routine Please Evaluate and Treat. PT Reason for Consult: Post op Ortho Surgery Special Instructions: s/p r TKA This query below is only for informational purposes and is not editable. Hospital Course: Patient is a pleasant 75-year-old female, status post right total knee arthroplasty, post-op day #3. Patient tolerated surgery well with no complications. No acute events during hospitalization. Patient remained hemodynamically stable throughout stay; did have intermittent hypertension, attributed to poor pain control. Patient did struggle with pain control and nausea with emesis in response to analgesic measures. Had severe nausea with Percocet, Chavies, and Morphine. Tolerated Toradol well without nausea. By the evening of postop day #2, patient reported adequate pain control with PO Tylenol. Nausea and emesis improved the evening of postop day #2. On POD#3 was able to tolerate coffee, half a sandwich, and vegetables without nausea or emesis. POD#1 Hgb declined to 11.6; patient was fairly asymptomatic with this. Denied lightheadedness, dizziness with transfers, shortness of breath, nor chest pain. Denied subjective fevers or chills. Patient participated in physical therapy and occupational therapy daily. Ambulation abilities were initially limited due to severe nausea and emesis. By POD#3, was ambulating 150 feet with four-wheel walker. Flexion to 84 degrees. Completed 7 stairs safely prior to discharge. Demonstrated ability to complete ADLs with minimal assistance. On POD#2, IV saline locked, vu catheter removed, and dressing was changed. Exam: Right knee incision intact and well approximated; steristrips intact above. Dressing on R knee is dry and intact. No surrounding erythema, nor active drainage. Mild warmth to touch of right knee. Post-operative edema present around right knee, extending into calf + pedal edema. Tibialis posterior appreciated, 2+. Right calf is soft and supple. Negative homans sign. Plantar flexion: 5/5. Dorsiflexion: 5/5. Knee ROM: 7-84. - Patient Instructions Diet: Usual Diet as Tolerated Activity: Apply Ice, Full Weight Bearing Driving: Do Not Drive Showering/Bathing: May Shower Wound/Incision Care: Keep Operative Site/Wound Site Clean and Dry, Change Dressing Daily Notify Provider of: Fever, Increased Pain, Swelling and Redness, Drainage Other/Special Instructions: -Continue with Nozin spray BID. -Take 1 aspirin (81 mg or 325 mg) BID for DVT/VTE prophylaxis. -Educated on warning signs of DVT/VTE and SSI; any concerns, please contact the clinic or visit your local ER. -Monitor your blood pressure two times per day at home. If remains elevated over the weekend, please follow up with your PCP next week. -Follow up apt scheduled with ortho clinic in 2 weeks. Call if any concerns or questions arise prior to scheduled apt. - Discharge Plan *PRESCRIPTION DRUG MONITORING PROGRAM REVIEWED*: Not Applicable *COPY OF PRESCRIPTION DRUG MONITORING REPORT IN PATIENT JOHANNE: Not Applicable Home Medications: Home Meds Aspirin [Ecotrin EC] 81 mg PO BID 01/26/20 [History] Fluticasone Propionate [Flonase] 2 spray NS DAILY PRN 01/26/20 [History] Levothyroxine Sodium [Synthroid] 125 mcg PO DAILY 01/26/20 [History] Multivitamin with Minerals [Multiple Vitamin] 1 tab PO DAILY 01/26/20 [History] Niacin 1,000 mg PO DAILY 01/26/20 [History] [place]-3/DHA/Epa/Fish Oil [[place]-3 Fish Oil 1,000 MG Sfgl] 1,000 mg PO DAILY 01/26/20 [History] Propranolol [Inderal LA 24 Hr] 60 mg PO DAILY 01/26/20 [History] Oxygen Therapy Mode: Room Air Patient Handouts: Nausea and Vomiting, Adult, [id number], Total Knee Replacement, Care After, [id number], Preventing Problems After Surgery, Preventing Constipation After Surgery Referrals: Kadeem Pa MD [Physician] - 02/06/21 11:15 am (Please register at the ER desk 15 minutes early for your appointment.) - Discharge Summary/Plan Comment DC Time >30 min.: No Discharge Summary/Plan Comment: -Discharge to home with home health referral; will complete PT via home health services -May remove dressing on R knee and shower over steri strips. Do not submerge incision in water (no bath, pool, jacuzzi). -Patient will take OTC analgesics for pain control at home, due to severe nausea with controlled pain medications. Patient has had adequate control with Tylenol over the past 12 hours and is agreeable to this -Discussed DVT/VTE prophylaxis; patient understands warning signs and return parameters. Will take 1 aspirin BID upon discharge for 1 month post-operatively -Patient to continue with Nozin spray BID -Patient has a blood pressure cuff at home; encouraged to monitor blood pressure twice daily upon discharge. If remains elevated over the weekend, should follow up with her primary care provider next week. -Patient to follow up with orthopedic clinic in 2 weeks; encouraged to call sooner with any concerns or questions that arise. - General Info Date of Service: 01/25/21 Admission Dx/Problem (Free Text: right knee joint operation Functional Status: Reports: Pain Controlled, Tolerating Diet, Ambulating, Urinating - Review of Systems General: Reports: Appetite (tolerating solid foods ). Denies: Fever, Fatigue, Chills HEENT: Reports: No Symptoms Pulmonary: Denies: Shortness of Breath Cardiovascular: Denies: Chest Pain, Palpitations Gastrointestinal: Reports: No Symptoms Genitourinary: Reports: No Symptoms Musculoskeletal: Reports: Back Pain (chronic ), Leg Pain (right ), Joint Pain (right knee ), Joint Swelling (right knee ) Skin: Reports: Bruising Neurological: Reports: No Symptoms Psychiatric: Reports: No Symptoms - Patient Data Vitals - Most Recent: Last Vital Signs Temp 96 F L 01/25/21 10:52 Pulse 62 01/25/21 10:52 Resp 16 01/25/21 10:52 BP 171/85 H 01/25/21 10:52 Pulse Ox 95 01/25/21 10:52 Weight - Most Recent: 156 lb 11.203 oz I&O - Last 24 hours: Intake & Output 01/24/21 01/25/21 01/25/21 22:59 06:59 14:59 Intake Total 450 800 Output Total 1200 550 300 Balance -750 -550 500 Med Orders - Current: Current Medications Acetaminophen (Acetaminophen 325 Mg Tab) 650 mg PO Q4H PRN PRN Reason: Pain/Fever Last Admin: 01/24/21 20:46 Dose: 650 mg Documented by: Hydrocodone Bitart/Acetaminophen (Acetaminophen/Hydrocodone 325-5 Mg Tab) 1 - 2 tab PO Q4H PRN PRN Reason: Pain Last Admin: 01/23/21 12:52 Dose: 1 tab Documented by: Bandage/Support Products (Nozin Nasal Bulk Fluids Handler) 1 applic NASBOTH BID [place] Stop: 01/28/21 21:01 Last Admin: 01/25/21 08:18 Dose: 1 applic Documented by: Docusate Sodium (Docusate Sodium 100 Mg Cap) 100 mg PO BID [facility] Last Admin: 01/25/21 08:18 Dose: 100 mg Documented by: Enoxaparin Sodium (Enoxaparin 30 Mg/0.3 Ml Syringe) 30 mg SUBCUT DAILY [facility] Last Admin: 01/25/21 08:18 Dose: 30 mg Documented by: Fluticasone Propionate (Fluticasone Propionate Nasal [place] 16 Gm Bottle) 0 gm NASBOTH DAILY PRN PRN Reason: Allergies Hydroxyzine HCl (Hydroxyzine Hcl 100 Mg/2 Ml Sdv) 100 mg IM Q6H PRN PRN Reason: Breakthrough Pain Sodium Chloride (Normal Saline) 1,000 mls @ 75 mls/hr IV ASDIRECTED [facility] Last Admin: 01/23/21 09:13 Dose: 75 mls/hr Documented by: Levothyroxine Sodium (Levothyroxine 100 Mcg Tab) 100 mcg PO ACBREAKFAST [facility] Last Admin: 01/25/21 07:21 Dose: 100 mcg Documented by: Levothyroxine Sodium (Levothyroxine 25 Mcg Tab) 25 mcg PO ACBREAKFAST [facility] Last Admin: 01/25/21 07:21 Dose: 25 mcg Documented by: Magnesium Hydroxide (Magnesium Hydroxide 400 Mg/5 Ml Susp 30 Ml Cup) 30 ml PO BID PRN PRN Reason: Constipation Last Admin: 01/25/21 10:48 Dose: 30 ml Documented by: Ondansetron HCl (Ondansetron 4 Mg/2 Ml Sdv) 4 mg IVPUSH Q4H PRN PRN Reason: Nausea/Vomiting Last Admin: 01/24/21 07:28 Dose: 4 mg Documented by: Oxycodone/Acetaminophen (Acetaminophen/Oxycodone 325-5 Mg Tab) 1 tab PO Q4H PRN PRN Reason: Pain (severe 7-10) Propranolol HCl (Propranolol 60 Mg Cap.Er) 60 mg PO BEDTIME [facility] Last Admin: 01/24/21 20:42 Dose: 60 mg Documented by: Discontinued Medications Hydrocodone Bitart/Acetaminophen (Acetaminophen/Hydrocodone 325-5 Mg Tab) 1 tab PO Q4H PRN PRN Reason: Pain (mild 1-3) Bandage/Support Products (Nozin Nasal Bulk Fluids Handler) 1 applic NASBOTH ONETIME ONE Stop: 01/22/21 07:01 Last Admin: 01/22/21 07:39 Dose: 3 swab Documented by: Dexamethasone (Dexamethasone 4 Mg/Ml Sdv) Confirm Administered Dose 4 mg .ROUTE .STK-MED ONE Stop: 01/22/21 08:29 Fentanyl (Fentanyl 100 Mcg/2 Ml Sdv) Confirm Administered Dose 100 mcg .ROUTE .STK-MED ONE Stop: 01/22/21 07:19 Fentanyl (Fentanyl 100 Mcg/2 Ml Sdv) Confirm Administered Dose 100 mcg .ROUTE .STK-MED ONE Stop: 01/22/21 08:43 Lactated Ringer's (Ringers, Lactated) 1,000 mls @ 75 mls/hr IV ASDIRECTED [facility] Last Admin: 01/22/21 07:40 Dose: 75 mls/hr Documented by: Cefazolin Sodium/Dextrose 2 gm (/ Premix) 50 mls @ 100 mls/hr IV ONETIME ONE Stop: 01/22/21 07:59 Last Admin: 01/22/21 07:41 Dose: 100 mls/hr Documented by: Tranexamic Acid 720 mg/ Sodium (Chloride) 57.2 mls @ 228.8 mls/hr IV ONETIME ONE Stop: 01/22/21 07:59 Last Admin: 01/22/21 08:20 Dose: 228.8 mls/hr Documented by: Tranexamic Acid 720 mg/ Sodium (Chloride) 57.2 mls @ 228.8 mls/hr IV ONETIME PRN PRN Reason: 2ND DOSE IF REQUESTED BY MD Stop: 01/22/21 14:00 Cefazolin Sodium/Dextrose 1 gm (/ Premix) 50 mls @ 100 mls/hr IV Q8H [facility] Stop: 01/23/21 06:29 Last Admin: 01/23/21 05:23 Dose: 100 mls/hr Documented by: Ketorolac Tromethamine (Ketorolac 30 Mg/Ml Sdv) 15 mg IVPUSH Q8H PRN PRN Reason: Breakthrough Pain Stop: 01/27/21 09:48 Last Admin: 01/23/21 00:12 Dose: 15 mg Documented by: Ketorolac Tromethamine (Ketorolac 30 Mg/Ml Sdv) 15 mg IVPUSH Q8H [facility] Stop: 01/24/21 17:01 Last Admin: 01/24/21 17:09 Dose: 15 mg Documented by: Midazolam HCl (Midazolam 1 Mg/Ml 2 Ml Sdv) Confirm Administered Dose 2 mg .ROUTE .STK-MED ONE Stop: 01/22/21 07:19 Midazolam HCl (Midazolam 1 Mg/Ml 2 Ml Sdv) Confirm Administered Dose 2 mg .ROUTE .STK-MED ONE Stop: 01/22/21 08:31 Ondansetron HCl (Ondansetron 4 Mg/2 Ml Sdv) Confirm Administered Dose 4 mg .ROUTE .STK-MED ONE Stop: 01/22/21 08:29 Oxycodone/Acetaminophen (Acetaminophen/Oxycodone 325-5 Mg Tab) 1 - 2 tab PO Q4H PRN PRN Reason: Pain Last Admin: 01/23/21 07:42 Dose: 1 tab Documented by: Povidone Iodine (Povidone-Iodine 10% Soln 118.25 Ml Bottle) Confirm Administered Dose 1 ml .ROUTE .STK-MED ONE Stop: 01/22/21 06:52 Last Admin: 01/22/21 08:40 Dose: 30 ml Documented by: Propofol (Propofol 200 Mg/20 Ml Sdv) Confirm Administered Dose 200 mg .ROUTE .STK-MED ONE Stop: 01/22/21 07:19 Propofol (Propofol 200 Mg/20 Ml Sdv) Confirm Administered Dose 200 mg .ROUTE .STK-MED ONE Stop: 01/22/21 08:28 Propofol (Propofol 200 Mg/20 Ml Sdv) Confirm Administered Dose 200 mg .ROUTE .STK-MED ONE Stop: 01/22/21 09:08 Propranolol HCl (Propranolol 60 Mg Cap.Er) 60 mg PO DAILY [place] - Exam Quality Assessment: Reports: DVT Prophylaxis General: Reports: Alert, Oriented, Cooperative, No Acute Distress Extremities: Normal Capillary Refill, Pedal Edema, Joint Swelling (right knee ), Leg Pain (right ), Limited Range of Motion (right knee due to pain and swelling ). No: Ivanna's Sign Skin: Reports: Dry, Intact, Ecchymosis Wound/Incisions: Reports: Healing Well, Dressing Dry and Intact, No Drainage Neurological: Reports: No New Focal Deficit Psy/Mental Status: Reports: Alert, Normal Affect, Normal Mood
--- NOTE | 2021-01-30 13:33 | OR ---
DATE OF PROCEDURE: 01/22/2021 SURGEON: Kadeem Pa MD PREOPERATIVE DIAGNOSIS: Osteoarthritis, right knee. POSTOPERATIVE DIAGNOSIS: Osteoarthritis, right knee. PROCEDURE: Right total knee arthroplasty using Andreina Persona components with a size 6 femur, E tibia, 12 mm insert, and 29 mm patella. SALES [employer] INSURANCE: [employer] ANESTHESIA: Spinal with sedation. INDICATIONS: Brielle Brumfield is a very pleasant 75-year-old female with a history of progressive pain in the right knee for the past year. She has failed conservative treatment. X-rays reveal end-stage osteoarthritis. Now presents for total knee arthroplasty. Risks, benefits, and potential complications of the procedure were discussed. Services of physician janitorial assistant were used as first coat sander through the case for retraction, exposure, leg manipulation, and closure. DESCRIPTION OF PROCEDURE: After adequate anesthesia was obtained, the patient was placed supine with a tourniquet about the right upper thigh. Right leg was prepped and draped in a sterile fashion. Leg was exsanguinated and tourniquet inflated to 300 mmHg pressure. Longitudinal was made of the anterior aspect of the knee, carried down through the subcutaneous tissues, and a medial parapatellar arthrotomy was performed. Mild effusion is present. Patella was everted, clamped, and the posterior patella was resected. Evaluation of the knee revealed complete articular cartilage loss from the patellofemoral joint and medial femoral condyle. The knee was flexed. Intramedullary canal of the femur was drilled. Intramedullary guide was placed and distal femoral cut was made. Attention turned to the tibia. Extramedullary tibial guide was placed, aligned, and secured. Proximal tibia was resected and the pieces removed. Remaining meniscus excised medially and laterally. Attention then returned to the femur which was sized to a #6 component. 6 cutting jig was secured to the distal femur and remaining cuts were made. Intercondylar cuts were made for a posterior cruciate-sacrificing component and the holes are drilled for the pegs. The tibia sized to an E component. The tray was pinned in place. Proximal tibia is reamed and punched. Trial reduction is then done with 12 mm insert providing full extension and good balance in flexion and extension. A 29 mm patellar button is utilized. Has a slight lateral tracking and lateral release was performed. The trial components were removed. The knee was thoroughly irrigated with the pulse lavage. Bone surfaces were dried. Components were cemented in place. Excess cement was removed and the knee was held in full extension with the trial insert as the cement cured. The knee was again taken through a range of motion with 11 and a 12 mm insert with the 12 mm providing very good balance in flexion and full extension, flexion easily to 130 degrees. Trials were removed and the final polyethylene was snapped into position. The knee was irrigated once again with pulse lavage. This was followed by a dilute Betadine solution which was left in place for 2-1/2 minutes and then irrigated once again. The knee was closed in interrupted fashion with #2 Ethibond, the capsule with 2-0 Vicryl, the skin in a running 3-0 Monocryl. Steri-Strips were applied. Light compressive dressing was placed. The patient tolerated the procedure well. There were no complications. Taken from the operating room in stable condition. Kadeem Pa MD /[id number]
== END 2021-01-25 14:02 | disposition home health service (06) | DRG 470 ==
LOC: JP.SDS 05:59 → JP.MS 09:47 → JP.SDS 01-23 08:40 → JP.MS 01-23 09:51 → UNDOADMIN 01-23 09:51
PROVIDERS: ADMIT Specialist; ATTEND Specialist
PROC: 0SRC0J9 Replacement of Right Knee Joint with Synthetic Substitute, Cemented, Open Approach (ICD-10-PCS; principal; 2021-01-22)
DX: M17.11 Unilateral primary osteoarthritis, right knee (principal); D62 Acute posthemorrhagic anemia; R11.2 Nausea with vomiting, unspecified; T88.59XA Other complications of anesthesia, initial encounter; E03.9 Hypothyroidism, unspecified; E78.5 Hyperlipidemia, unspecified; J30.2 Other seasonal allergic rhinitis; M54.9 Dorsalgia, unspecified; S83.206A Unspecified tear of unspecified meniscus, current injury, right knee, initial encounter; Z90.710 Acquired absence of both cervix and uterus; Z88.5 Allergy status to narcotic agent; Z91.030 Bee allergy status; Z88.8 Allergy status to other drugs, medicaments and biological substances
CPT/HCPCS: 27447; 36415; 73560-26-RT; 73560-RT; 85027; 86850; 86900; 86901; 97110-GP; 97162-GP; 97165-GO; 97530-GP; 97535-GO; 97535-GP; A9270-GY; C1713; C1776; J0690; J1100; J1650; J1885; J2250; J2405; J2704; J3010; J7030; J7120

== ENCOUNTER 2024-03-22 09:49 | Day surgery (SDC) | payer MEDICARE, BC ==
[2024-03-22] MEDS: Lactated Ringers 1,000 ML IV SCH (10:17)
[2024-03-22 10:21] LABS: BASOPHILS ABSOLUTE AUTO 0.05 K/uL (0.00-0.10); BASOPHILS PERCENT AUTO 1.2 % (0.1-1.3); EOSINOPHILS ABSOLUTE AUTO 0.12 K/uL (0.00-0.40); HEMATOCRIT 40.4 % (34.3-46.0); IMMATURE GRAN PERCENT AUTO 0.2 % (0.0-0.7); LYMPHOCYTES ABSOLUTE AUTO 1.23 K/uL (0.8-3.3); LYMPHOCYTES PERCENT AUTO 30.5 % (11.4-47.7); MEAN CORPUSCULAR HGB CONC 34.7 g/dL (31.6-35.5); MEAN CORPUSCULAR VOLUME 92.2 fL (81.4-99.0); MONOCYTES ABSOLUTE AUTO 0.53 K/uL (0.20-0.90); MONOCYTES PERCENT AUTO 13.2 % (3.3-12.6); NEUTROPHILS ABSOLUTE AUTO 2.09 K/uL (1.0-7.6); NEUTROPHILS PERCENT AUTO 51.9 % (40.0-78.1); PLATELET COUNT,PLT 224 K/uL (130-375); RED BLOOD CELL COUNT 4.38 M/uL (3.77-5.24)
[2024-03-22] MEDS: Nozin Nasal Sanitizer NASBOTH ONE (10:24)
[2024-03-22 10:30] LABS: ANION GAP 7.6 mmol/L (5.0-14.0); CALCIUM 9.8 mg/dL (8.5-10.1); CREATININE 0.7 mg/dL (0.6-1.0); EST CRCL DRUG DOSING (CG) 59.95 mL/min
[2024-03-22 10:42] LABS: IMMATURE GRAN ABSOLUTE AUTO 0.01 K/uL (0.00-0.23)
[2024-03-22] MEDS ORDERED: Ondansetron 4 MG/2 ML SDV ONE (11:40)
[2024-03-22] MEDS ORDERED: fentaNYL 100 MCG/2 ML SDV ONE ×2 (11:40→14:06)
[2024-03-22] MEDS ORDERED: Propofol 200 MG/20 ML SDV ONE (11:40)
[2024-03-22] MEDS ORDERED: Dexamethasone 4 MG/ML SDV ONE (11:40)
[2024-03-22] MEDS: ceFAZolin 1 GM in Premix Bag 1 BAG IV ONE (13:35)
[2024-03-22] MEDS ORDERED: droPERidol 5 MG/2 ML SDV ONE (13:49)
[2024-03-22] MEDS: Bupivacaine 0.5% 50 ML MDV ONE (14:14)
[2024-03-22] MEDS: Acetaminophen/HYDROcodone 325-5 MG Tab PO ONE (15:42)
== END 2024-03-22 16:10 | disposition home or self-care (01) ==
LOC: JP.SDS 09:49
PROVIDERS: ATTEND Specialist
DX: M23.8X2 Other internal derangements of left knee (principal); S83.192A Other subluxation of left knee, initial encounter; I10 Essential (primary) hypertension; E78.5 Hyperlipidemia, unspecified; X58.XXXA Exposure to other specified factors, initial encounter
CPT/HCPCS: 01320; 27599; 36415; 80048; 85025; A9270; J0665; J0689; J1100; J1790; J2405; J2704; J3010; J7120